=== PATIENT | female | born 1955 | race Caucasian/White ===

== ENCOUNTER 2018-03-29 09:51 | Outpatient (CLI) | payer MEDICARE, MEDICAID | END 2018-03-29 09:52 | disposition home or self-care (01) | PROVIDERS: ATTEND Family Medicine | DX: Z74.09 Other reduced mobility (principal); Z86.73 Personal history of transient ischemic attack (TIA), and cerebral infarction without residual deficits; R29.898 Other symptoms and signs involving the musculoskeletal system ==